=== PATIENT | female | born 1990 | race Caucasian/White ===

== ENCOUNTER 2017-10-10 21:00 | Emergency (ER) | payer SELFPAY ==
[~2017-10-10] VITALS: Ht 160 cm; Wt 80.3 kg
[2017-10-10 21:07] VITALS: Ht 160 cm; Wt 80.3 kg
[2017-10-11 00:54] LABS: UA SPECIFIC GRAVITY 1.025 (1.005-1.035); microscopic required? YES; urine erythrocyte 2+ (NEGATIVE)
[2017-10-11 02:27] VITALS: BP 110/80
== END 2017-10-11 02:27 | disposition home or self-care (01) ==
LOC: ED 21:00
PROVIDERS: Emergency Medicine
DX: N39.0 Urinary tract infection, site not specified (principal)